=== PATIENT | female | born 1950 | race Caucasian/White ===

== ENCOUNTER 2020-01-13 15:26 | Emergency (ER) | payer MEDICARE, OTHER, SELFPAY ==
--- NOTE | ~2020-01-13 | XR_ITS ---
EXAMINATION: XR hip RT min 2V EXAM DATE: 01/13/2020 15:55 INDICATION: No known recent injury provided at this time. Pain of the right hip. TECHNIQUE: Right hip frontal, crosstable lateral and 'frog-leg' projections for interpretation. Front al projection pelvis. No prior study. FINDINGS: There is mild right hip primary osteoarthritis. Smooth right hip femoral head contour, no r adiographic evidence of avascular necrosis. There are no acute fractures or dislocations identified. There is no subcutaneous gas. The soft tis aysha is unremarkable. There are no radiopaque foreign bodies. IMPRESSION: Mild right hip osteoarthritis. Reviewed, dictated and finalized at location G.
[2020-01-13 15:35] VITALS: BP 139/73; PULSE 80; RESP 14; TEMP 36.8; O2SAT 97
--- NOTE | 2020-01-13 15:47 | ED.GENADULT ---
HPI - General Adult General Chief complaint: Extremity Injury, Lower Stated complaint: right hip pain runs down leg Time Seen by Provider: 01/13/20 16:00 Source: patient and RN notes reviewed Mode of arrival: ambulatory Limitations: no limitations History of Present Illness HPI narrative: 69-year-old female presents with concern for right hip pain. Reports pain started yesterday with aching when she got out of bed and gradually throughout the day became worse. Reports groin pain that radiates to the posterior hip and down the right leg. Reports she cannot find a position of comfort, pain worsens with weightbearing. She denies injury, trauma, history of hip injury. Reports she took 2 Aleve that mildly relieved the pain MD complaint: Hip pain Related Data Home Medications Medication Instructions Recorded Confirmed albuterol sulfate 2 puff INHALATION QID PRN 01/13/20 01/13/20 amlodipine 5 mg PO DAILY 01/13/20 01/13/20 [id number]-[id number]-tnuiarvi 1 inh INHALATION DAILY 01/13/20 01/13/20 [Trelegy Ellipta] losartan 100 mg PO DAILY 01/13/20 01/13/20 ropinirole 0.25 mg PO DAILY 01/13/20 01/13/20 tramadol 50 mg PO DAILY PRN 01/13/20 01/13/20 Allergies Allergy/AdvReac Type Severity Reaction Status Date / Time No Known Allergies Allergy Verified 01/13/20 15:44 Review of Systems Review of Systems: Narrative: CONSTITUTIONAL: Denies malaise, chills, sweats, or fever. CARDIOVASCULAR: Denies chest pain, palpitations, or edema. RESPIRATORY: Denies cough or dyspnea. GASTROINTESTINAL: Denies abdominal pain, nausea, vomiting, diarrhea, bloody, or mucous stools. GENITOURINARY: Denies dysuria or hematuria. SKIN: Denies bruising, redness MUSCULOSKELETAL: Reports right hip pain NEUROLOGIC: Denies numbness, weakness All systems reviewed & are unremarkable except as noted in HPI and below PMFSH Comments At time of signature, agree with nursing past medical, surgical, social and family history. There is no relevant family history pertinent to the presenting complaint Exam Narrative: Exam Narrative: GENERAL: Well-appearing, well-nourished, and in no acute distress. HEAD: Normocephalic, atraumatic. EYES: PERRLA, conjunctivae clear NECK: Supple. CHEST: Speaks in full sentences. No respiratory distress. HEART: Regular rate and rhythm. Normal and equal peripheral pulses. EXTREMITIES: Right hip, leg has normal strength and sensation, normal range of motion. No edema or ecchymosis. 5/5 strength with hip flexion and extension, rotation. Normal sensation with sensitivity to light touch and pain. No open wounds, no skin tenting, no devitalized tissue or atrophy, no trophic changes, no obvious deformity, alignment normal, no point tenderness, nearby joints and structures intact. Distal pulses palpable and equal bilaterally, skin warm, dry, pink. Capillary refill less than 3 seconds. SKIN: Warm, dry, no rash. NEURO: Alert and oriented x3. PSYCH: Normal mood and affect Course Course Emergency Course: Patient is aware of diagnosis, understands and agrees to treatment plan. Anticipatory guidance given. Patient agrees to follow-up as directed and is aware of reasons to seek care at the emergency department. Portions of this record may have been created with voice recognition software Vital Signs Vital signs: Vital Signs Temperature 98.3 F 01/13/20 15:35 Pulse Rate 80 01/13/20 15:35 Respiratory Rate 14 01/13/20 15:35 Blood Pressure 139/73 01/13/20 15:35 Pulse Oximetry 97 01/13/20 15:35 Temperature 98.3 F 01/13/20 15:35 Pulse Rate 80 01/13/20 15:35 Respiratory Rate 14 01/13/20 15:35 Blood Pressure 139/73 01/13/20 15:35 Pulse Oximetry 97 01/13/20 15:35 Reviewed. Medical Decision Making MDM Narrative Medical decision making narrative: Patients pain is consistent with musculoskeletal etiology. No signs of neurological or vascular compromise on exam. Compartments and tissues are soft without signs of compartme
--- NOTE | 2020-01-13 15:59 | PC.NURSE ---
PT DECLINED WHEELCHAIR TO RADIOLOGY AND PT ROOM
== END 2020-01-13 16:29 | disposition home or self-care (01) ==
PROVIDERS: Emergency Provider Nurse Practitioner; PCP Internal Medicine
DX: M25.551 Pain in right hip (principal); I10 Essential (primary) hypertension; J44.9 Chronic obstructive pulmonary disease, unspecified; E78.00 Pure hypercholesterolemia, unspecified
CPT/HCPCS: 73502; 99213; G0463